=== PATIENT | female | born 1960 | race African-American/Black ===

== ENCOUNTER 2016-08-28 13:25 | Emergency (ER) | payer OTHER ==
[~2016-08-28 13:25] MED LIST: LEVO50 PO
== END 2016-08-28 14:35 | disposition left against medical advice (07) ==
LOC: EMS 13:28
DX: M54.9 Dorsalgia, unspecified (principal); Z53.21 Procedure and treatment not carried out due to patient leaving prior to being seen by health care provider

== ENCOUNTER 2016-09-05 16:49 | Emergency (ER) | payer OTHER ==
[~2016-09-05] VITALS: Ht 166.4 cm; Wt 79.5 kg
[2016-09-05 16:56] VITALS: BP 151/89
== END 2016-09-05 20:00 | disposition left against medical advice (07) ==
LOC: EMS 16:52
DX: E86.0 Dehydration (principal); M54.5 Low back pain; I11.9 Hypertensive heart disease without heart failure; Z87.891 Personal history of nicotine dependence; Z53.21 Procedure and treatment not carried out due to patient leaving prior to being seen by health care provider

== ENCOUNTER 2016-11-22 10:59 | Emergency (ER) | payer OTHER ==
[~2016-11-22] VITALS: Ht 167.6 cm; Wt 72.5 kg
[2016-11-22 13:30] VITALS: BP 131/76
== END 2016-11-22 13:49 | disposition home or self-care (01) ==
LOC: EMS 11:03
DX: S80.02XA Contusion of left knee, initial encounter (principal); I11.9 Hypertensive heart disease without heart failure; E03.9 Hypothyroidism, unspecified; Z87.891 Personal history of nicotine dependence; Z88.5 Allergy status to narcotic agent; Z88.0 Allergy status to penicillin; Z88.8 Allergy status to other drugs, medicaments and biological substances; W19.XXXA Unspecified fall, initial encounter; Y93.89 Activity, other specified; Y92.89 Other specified places as the place of occurrence of the external cause; Y99.8 Other external cause status
CPT/HCPCS: 99284

== ENCOUNTER 2016-12-01 17:54 | Emergency (ER) | payer OTHER ==
[~2016-12-01] VITALS: Ht 165.1 cm; Wt 81.8 kg
[2016-12-01] MEDS ORDERED: OxyCODONE HCL/ACETAMINOPHEN 5-325 MG TABLET PO ONE (18:45)
[2016-12-01] MEDS ORDERED: DiphenhydrAMINE HCL 50 MG/ML VIAL IM ONE (18:45)
[2016-12-01 19:18] VITALS: BP 129/81
== END 2016-12-01 19:21 | disposition home or self-care (01) ==
LOC: EMS 18:00
DX: T78.40XA Allergy, unspecified, initial encounter (principal); T40.2X5A Adverse effect of other opioids, initial encounter; Y92.9 Unspecified place or not applicable; Z87.891 Personal history of nicotine dependence; I10 Essential (primary) hypertension; E03.9 Hypothyroidism, unspecified; G43.909 Migraine, unspecified, not intractable, without status migrainosus; Z90.49 Acquired absence of other specified parts of digestive tract; Z88.0 Allergy status to penicillin
CPT/HCPCS: 96372; 99283; J1200

== ENCOUNTER 2016-12-15 16:42 | Emergency (ER) | payer OTHER ==
[~2016-12-15] VITALS: Ht 165.1 cm; Wt 81.8 kg
[2016-12-15] MEDS ORDERED: METO25 PO (17:56)
[2016-12-15] MEDS ORDERED: ATOR10TA84 PO (17:56)
[2016-12-15] MEDS ORDERED: SERT50TA12 PO (17:56)
[2016-12-15 19:00] VITALS: BP 121/78
[2016-12-15] MEDS ORDERED: KETOROLAC TROMETHAMINE 30 MG/ML VIAL IM ONE (19:00)
== END 2016-12-15 19:22 | disposition home or self-care (01) ==
LOC: EMS 16:45
DX: S83.92XA Sprain of unspecified site of left knee, initial encounter (principal); M25.462 Effusion, left knee; E03.9 Hypothyroidism, unspecified; F17.210 Nicotine dependence, cigarettes, uncomplicated; I11.9 Hypertensive heart disease without heart failure; G43.909 Migraine, unspecified, not intractable, without status migrainosus; Z88.5 Allergy status to narcotic agent; Z88.0 Allergy status to penicillin; Z88.8 Allergy status to other drugs, medicaments and biological substances; X58.XXXA Exposure to other specified factors, initial encounter; Y93.01 Activity, walking, marching and hiking; Y92.89 Other specified places as the place of occurrence of the external cause; Y99.8 Other external cause status
CPT/HCPCS: 29505; 96372; 99283; J1885

== ENCOUNTER 2017-01-31 18:07 | Emergency (ER) | payer OTHER ==
[~2017-01-31] VITALS: Ht 165.1 cm; Wt 77.2 kg
[~2017-01-31 18:07] MED LIST changes: +ATOR10TA84 PO; +METO25 PO; +SERT50TA12 PO
[2017-01-31 19:55] VITALS: BP 133/78
== END 2017-01-31 19:54 | disposition home or self-care (01) ==
LOC: EMS 18:11
DX: M25.562 Pain in left knee (principal); F81.9 Developmental disorder of scholastic skills, unspecified; F41.9 Anxiety disorder, unspecified; F32.9 Major depressive disorder, single episode, unspecified; I11.9 Hypertensive heart disease without heart failure; E03.9 Hypothyroidism, unspecified; G43.909 Migraine, unspecified, not intractable, without status migrainosus; Z87.891 Personal history of nicotine dependence; Z88.8 Allergy status to other drugs, medicaments and biological substances; Z88.0 Allergy status to penicillin; Z88.5 Allergy status to narcotic agent
CPT/HCPCS: 99282

== ENCOUNTER 2017-04-27 12:36 | Emergency (ER) | payer OTHER ==
[~2017-04-27] VITALS: Ht 165.1 cm; Wt 84.1 kg
[2017-04-27] MEDS ORDERED: KETOROLAC TROMETHAMINE 60 MG/2 ML VIAL IM ONE (13:45)
[2017-04-27] MEDS ORDERED: OxyCODONE HCL/ACETAMINOPHEN 5-325 MG TABLET PO ONE (14:30)
[2017-04-27 15:38] VITALS: BP 139/75
== END 2017-04-27 15:54 | disposition home or self-care (01) ==
LOC: EMS 12:40
DX: M79.671 Pain in right foot (principal); E03.9 Hypothyroidism, unspecified; I11.9 Hypertensive heart disease without heart failure; Z88.0 Allergy status to penicillin; Z88.5 Allergy status to narcotic agent; Z87.891 Personal history of nicotine dependence; X50.1XXA Overexertion from prolonged static or awkward postures, initial encounter; Y93.89 Activity, other specified; Y92.89 Other specified places as the place of occurrence of the external cause; Y99.8 Other external cause status
CPT/HCPCS: 73630; 96372; 99284; J1885